=== PATIENT | male | born 1960 | race Caucasian/White ===

== ENCOUNTER 2017-05-30 14:53 | Emergency (ER) | payer BC ==
[~2017-05-30] VITALS: Ht 165.1 cm; Wt 93.9 kg
[2017-05-30] MEDS ORDERED: IV NORMAL SALINE 1000ML BAG 1,000 ML IV SCH (14:55)
--- NOTE | 2017-05-30 14:55 | PHYS DOC ---
Adult General HPI HPI Patient is a 56 year old male who presents with an allergic reaction. He states he was underneath his truck working on a bee stung him he started feeling short of breath became hot and developed a rash over his body. EMS was called and he was initially hypotensive with systolics in the 70s and complaining of shortness of breath he did receive an albuterol treatment now feels better even though he has a rash all over his body. He states he's never had an allergic reaction from a bee sting before. Currently he denies any troubles breathing, chest pain or abdominal pain. Review of Systems Review of Systems Constitutional: Denies fever or chills [] Eyes: Denies change in visual acuity, redness, or eye pain [] HENT: Denies nasal congestion or sore throat [] Respiratory: Denies cough or shortness of breath [] Cardiovascular: No additional information not addressed in HPI [] GI: Denies abdominal pain, nausea, vomiting, bloody stools or diarrhea [] : Denies dysuria or hematuria [] Musculoskeletal: Denies back pain or joint pain [] Integument: Denies rash or skin lesions [] Neurologic: Denies headache, focal weakness or sensory changes [] Endocrine: Denies polyuria or polydipsia [] Current Medications Current Medications Current Medications Medications (Trade) Dose Ordered Sig/Sophia Start Time Stop Time Status Last Admin Dose Admin Albuterol Sulfate (Ventolin Neb Soln) 2.5 mg 1X ONCE 05/30/17 15:00 05/30/17 15:10 DC 05/30/17 15:12 2.5 MG Diphenhydramine HCl (Benadryl) 50 mg 1X ONCE 05/30/17 15:00 05/30/17 15:10 DC 05/30/17 15:03 50 MG Epinephrine HCl (Adrenalin) 1 mg STK-MED ONCE 05/30/17 14:58 05/30/17 14:59 DC Famotidine (Pepcid) 20 mg 1X ONCE 05/30/17 15:00 05/30/17 15:10 DC 05/30/17 15:04 20 MG Methylprednisolone Sodium Succinate (SOLU-Medrol 125MG VIAL) 125 mg 1X ONCE 05/30/17 15:00 05/30/17 15:09 DC 05/30/17 15:02 125 MG Sodium Chloride 1,000 ml @ 1,000 mls/hr Q1H 05/30/17 14:55 05/30/17 15:54 DC 05/30/17 15:05 1,000 MLS/HR Allergies Allergies Allergies Coded Allergies Type Severity Reaction Last Updated Verified bee venom protein (honey bee) Allergy Severe hives, soa, wheezing 05/30/17 Yes Physical Exam Physical Exam Constitutional: Well developed, well nourished, no acute distress, non-toxic appearance. [] HENT: Normocephalic, atraumatic, bilateral external ears normal, oropharynx moist, no oral exudates, nose normal. [] Eyes: PERRLA, EOMI, conjunctiva normal, no discharge. [] Neck: Normal range of motion, no tenderness, supple, no stridor. [] Cardiovascular:Heart rate regular rhythm, no murmur [] Lungs & Thorax: Bilateral breath sounds with moderate wheezing throughout. Abdomen: Bowel sounds normal, soft, no tenderness, no masses, no pulsatile masses. [] Skin: Warm, dry, no erythema, urticaria-type rash over chest abdomen pelvis and bilateral arms and legs. Back: No tenderness, no CVA tenderness. [] Extremities: No tenderness, no cyanosis, no clubbing, ROM intact, no edema. [] Neurologic: Alert and oriented X 3, normal motor function, normal sensory function, no focal deficits noted. [] Psychologic: Affect normal, judgement normal, mood normal. [] Current Patient Data Vital Signs Vital Signs Date Time Temp Pulse Resp B/P (MAP) Pulse Ox O2 Delivery O2 Flow Rate FiO2 05/30/17 15:16 96 Nasal Cannula 3.0 05/30/17 14:55 97.8 78 24 127/73 (91) 97.8 Lab Values Laboratory Tests Test 05/30/17 15:00 White Blood Count 9.8 x10^3/uL (4.0-11.0) Red Blood Count 6.37 x10^6/uL (4.30-5.70) H Hemoglobin 20.0 g/dL (13.0-17.5) H Hematocrit 58.9 % (39.0-53.0) H Mean Corpuscular Volume 92 fL (79-100) Mean Corpuscular Hemoglobin 31 pg (25-35) Mean Corpuscular Hemoglobin Concent 34 g/dL (31-37) Red Cell Distribution Width 13.7 % (11.5-14.5) Platelet Count 228 x10^3/uL (140-400) Neutrophils (%) (Auto) 69 % (31-73) Lymphocytes (%) (Auto) 23 % (24-48) L Monocytes (%) (Auto) 6 % (0-9) Eosinophils (%) (Auto) 1 % (0-3) Basophils (%) (Auto) 1 % (0-3) Neutrophils # (Auto) 6.8 x10^3uL (1.8-7.7) Lymphocytes # (Auto) 2.2 x10^3/uL (1.0-4.8) Monocytes # (Auto) 0.6 x10^3/uL (0.0-1.1) Eosinophils # (Auto) 0.1 x10^3/uL (0.0-0.7) Basophils # (Auto) 0.1 x10^3/uL (0.0-0.2) Sodium Level 136 mmol/L (136-145) Potassium Level 3.3 mmol/L (3.5-5.1) L Chloride Level 98 mmol/L (98-107) Carbon Dioxide Level 23 mmol/L (21-32) Anion Gap 15 (6-14) H Blood Urea Nitrogen 11 mg/dL (8-26) Creatinine 1.3 mg/dL (0.7-1.3) Estimated GFR (Cockcroft-Gault) 57.5 Glucose Level 157 mg/dL (70-99) H Calcium Level 9.3 mg/dL (8.5-10.1) Laboratory Tests 05/30/17 15:00 Laboratory Tests 05/30/17 15:00 EKG EKG [] Radiology/Procedures Radiology/Procedures [] Impressions: Allergic/anaphylactic reaction Course & Med Decision Making Course & Med Decision Making Pertinent Labs and Imaging studies reviewed. (See chart for details) He presented with diffuse urticaria rash and moderate wheezing bilaterally. He is a morbidly obese gentleman with a family history of heart disease therefore I held off a given subcutaneous epinephrine at this time. He received Benadryl, Solu-Medrol, Pepcid and is being discharged with the same. He was watched for 3 hours and his symptoms have improved. He is also being discharged with an epi- pen and instructed only use it for severe allergic reaction he thinks his life threatening. He also has hemoglobin of 20 and is instructed to follow-up with his primary care physician regarding this. Return precautions given. He is agreeable plan being discharged in stable condition. Dragon Disclaimer Dragon Disclaimer This electronic medical record was generated, in whole or in part, using a voice recognition dictation system. Departure Departure Impression: Primary Impression: Allergic reaction Disposition: 01 HOME, SELF-CARE Condition: STABLE Referrals: CIERRA MARTIN MD (PCP) Patient Instructions: Anaphylactic Reaction, [id number], Bee, Wasp, or Hornet Sting Additional Instructions: You presented with an allergic type reaction to bee sting called anaphylaxis. You received IV steroids, Benadryl, and Pepcid. He also received albuterol breathing treatments. Your symptoms improved with these medications. You'll watched for 3 hours and your symptoms have improved substantially. You will need to take prednisone one tablet daily for the next 5 days in addition to Pepcid 20 mg twice daily and you can use Benadryl as needed for itching. He can purchase Pepcid and Benadryl [id number] do not need a prescription for these items. You'll also need to use her albuterol inhaler to start wheezing. You will need to avoid any Bees. You should follow-up with your primary care physician within the next 3-5 days regarding her allergic reaction and the fact he have an elevated hemoglobin at 20. If you develop chest pain shortness of breath weakness, troubles talking or other concerns please call 911 and return back to ER. I am discharging you with an an EpiPen which she could use if he gets stung again and you cannot breathe oriented to the emergency department fast enough or have the pipe cutter show up fast enough to help you with your symptoms. You should only use it if you have severe troubles breathing/wheezing or troubles talking from allergic reaction. Scripts Epinephrine (EPIPEN 2-JESSICA) 0.3 Mg/0.3 Ml Auto.injct 0.3 MG IJ 1X Y for ANAPHYLAXIS, #1 SYR Prov: MAHNAZ VILLATORO MD 05/30/17 Albuterol Sulfate (PROAIR HFA INHALER) 8.5 Gm Hfa.aer.ad 1-2 PUFF INH PRN Q6HRS Y for SHORTNESS OF BREATH, #1 INHALER 0 Refills Prov: MAHNAZ VILLATORO MD 05/30/17 Prednisone (PREDNISONE) 50 Mg Tablet 1 TAB PO DAILY, #5 TAB Prov: MAHNAZ VILLATORO MD 05/30/17 Problem Qualifiers Primary Impression: Allergic reaction Encounter type: initial encounter Qualified Codes: T78.40XA - Allergy, unspecified, initial encounter MAHNAZ VILLATORO MD May 30, 2017 14:55
[2017-05-30] MEDS ORDERED: EPINEPHrine 1 MG/ML VIAL ONE (14:58)
[2017-05-30] MEDS ORDERED: ALBUTEROL SULFATE 2.5 MG/3 ML NEBU. NEB ONE (15:00)
[2017-05-30] MEDS ORDERED: diphenhydrAMINE 50 MG/ML VIAL IV ONE (15:00)
[2017-05-30] MEDS ORDERED: FAMOTIDINE 20 MG/2 ML VIAL IVP ONE (15:00)
[2017-05-30] MEDS ORDERED: methylPREDNISolone SOD SUCC PF 125 MG/2 ML VIAL. IV ONE (15:00)
[2017-05-30 15:11] LABS: BASO # 0.1 x10^3/uL (0.0-0.2); BASO % 1 % (0-3); EOS % 1 % (0-3); HEMATOCRIT 58.9 % (39.0-53.0); LYMPH # 2.2 x10^3/uL (1.0-4.8); LYMPH % 23 % (24-48); MEAN CORPUSCULAR HEMOGLOBIN 31 pg (25-35); MEAN CORPUSCULAR HGB CONC 34 g/dL (31-37); MEAN CORPUSCULAR VOLUME 92 fL (79-100); MONO % 6 % (0-9); NEUT % 69 % (31-73); PLATELET COUNT 228 x10^3/uL (140-400); RED BLOOD COUNT 6.37 x10^6/uL (4.30-5.70); RED CELL DISTRIBUTION WIDTH 13.7 % (11.5-14.5); WHITE BLOOD COUNT 9.8 x10^3/uL (4.0-11.0)
[2017-05-30 15:23] LABS: CALCIUM 9.3 mg/dL (8.5-10.1); CREATININE 1.3 mg/dL (0.7-1.3); GFR 57.5; POTASSIUM 3.3 mmol/L (3.5-5.1)
[2017-05-30] MEDS ORDERED: PRED50TA PO (17:00)
[2017-05-30] MEDS ORDERED: PROAIR HFA8.5 GM INH (17:00)
[2017-05-30] MEDS ORDERED: EPIPEN 2-P0.3 MG/0.3 IJ (17:01)
[2017-05-30 17:25] VITALS: BP 150/78
== END 2017-05-30 17:41 | disposition home or self-care (01) ==
LOC: ER 14:53
DX: L25.8 Unspecified contact dermatitis due to other agents (principal); T63.441A Toxic effect of venom of bees, accidental (unintentional), initial encounter; L50.9 Urticaria, unspecified; I95.9 Hypotension, unspecified; R06.02 Shortness of breath; E66.01 Morbid (severe) obesity due to excess calories; Z91.030 Bee allergy status; Z68.34 Body mass index [BMI] 34.0-34.9, adult; Y92.89 Other specified places as the place of occurrence of the external cause
CPT/HCPCS: 36415; 36600; 80048; 85025; 94250; 96361; 96374; 96375; 99284; J1200; J2930; J7030; J7613; S0028